=== PATIENT | male | born 1975 | race Caucasian/White ===

== ENCOUNTER → 2017-09-21 | Outpatient (CLI) | payer BC ==
[~2017-09-21] MED LIST: SERT100T5 PO
== END ==
LOC: STAR 10:27
PROVIDERS: ATTEND Orthopaedic Surgery
DX: Z02.9 Encounter for administrative examinations, unspecified (principal)

== ENCOUNTER 2017-09-27 09:22 | Day surgery (SDC) | payer BC ==
[~2017-09-27] VITALS: Ht 182.9 cm; Wt 120.7 kg
[2017-09-27] MEDS ORDERED: LACTATED RINGERS 1,000 ML IV SCH (10:15)
[2017-09-27] MEDS ORDERED: FENTANYL PF 100 MCG/2ML ONE (10:34)
[2017-09-27] MEDS ORDERED: MIDAZOLAM 1 MG/ML, 2ML ONE (10:35)
[2017-09-27] MEDS ORDERED: LIDOCAINE 1%, 50ML ONE (11:38)
[2017-09-27] MEDS ORDERED: EPINEPHRINE 1 MG/ML, 1ML ONE (11:38)
[2017-09-27] MEDS ORDERED: CLINDAMYCIN 150 MG/ML, 6ML ONE (12:15)
[2017-09-27] MEDS ORDERED: LIDOCAINE 1%-EPI 1:100K, 50ML IM ONE (12:33)
[2017-09-27] MEDS ORDERED: PROMETHAZINE 12.5 MG SUPP PR PRN (13:00)
[2017-09-27] MEDS ORDERED: MEPERIDINE/PF 25MG/0.5ML IVPush PRN (13:00)
[2017-09-27] MEDS ORDERED: hydrALAzine 20 MG/ML, 1ML IV PRN (13:00)
[2017-09-27] MEDS ORDERED: ACETAMINOPHEN 325 MG TABLET PO PRN (13:00)
[2017-09-27] MEDS ORDERED: METOPROLOL 1 MG/ML, 5ML IV PRN (13:00)
[2017-09-27] MEDS ORDERED: DIAZEPAM 5 MG/ML, 2ML IVPush PRN (13:00)
[2017-09-27] MEDS ORDERED: EPHEDRINE 50 MG/ML, 1ML IVPush PRN (13:00)
[2017-09-27] MEDS ORDERED: MIDAZOLAM 1 MG/ML, 2ML IV PRN (13:00)
[2017-09-27] MEDS ORDERED: ONDANSETRON 2MG/ML, 2ML IVPush PRN (13:00)
[2017-09-27] MEDS ORDERED: PROMETHAZINE 25 MG/ML, 1ML IV PRN (13:00)
[2017-09-27] MEDS ORDERED: OXYcodone 5 MG/5 ML ORAL.SOL UDC PO PRN (13:00)
[2017-09-27] MEDS ORDERED: HYDROcodone/APAP 7.5-325MG/15ML UDC PO PRN (13:00)
[2017-09-27] MEDS ORDERED: LABETALOL 5MG/ML, 20ML IV PRN (13:00)
[2017-09-27] MEDS ORDERED: ALBUTEROL SULFATE 2.5 MG/3 ML NPPB PRN (13:00)
[2017-09-27] MEDS ORDERED: FENTANYL PF 100 MCG/2ML IV PRN (13:00)
[2017-09-27] MEDS ORDERED: HYDROmorphone 1 MG/ML, 1ML IV PRN (13:00)
[2017-09-27] MEDS ORDERED: PROPOFOL 10 MG/ML, 20ML ONE (13:16)
[2017-09-27] MEDS ORDERED: ROCURONIUM 10 MG/ML,10ML ONE (13:16)
[2017-09-27] MEDS ORDERED: CEFAZOLIN 1,000 MG ONE ×2 (13:16)
[2017-09-27] MEDS ORDERED: DEXAMETHASONE 4 MG/ML, 1ML ONE (13:16)
[2017-09-27] MEDS ORDERED: SUCCINYLCHOLINE 20 MG/ML, 10ML ONE (13:16)
[2017-09-27] MEDS ORDERED: ONDANSETRON 2MG/ML, 2ML ONE (13:16)
[2017-09-27] MEDS ORDERED: ACETAMINOPHEN 650 MG/20.3 ML UDC ONE (13:46)
[2017-09-27] MEDS ORDERED: KETOROLAC 30 MG/1 ML ONE (13:46)
[2017-09-27] MEDS ORDERED: OXYcodone 5 MG/5 ML ORAL.SOL UDC ONE (13:47)
[2017-09-27] MEDS ORDERED: KETOROLAC 30 MG/1 ML IVPush ONE (14:00)
== END 2017-09-27 17:00 | disposition home or self-care (01) ==
LOC: OUT 09:22
PROVIDERS: ATTEND Orthopaedic Surgery
DX: M75.111 Incomplete rotator cuff tear or rupture of right shoulder, not specified as traumatic (principal); M75.41 Impingement syndrome of right shoulder; M24.111 Other articular cartilage disorders, right shoulder; M65.811 Other synovitis and tenosynovitis, right shoulder; F41.9 Anxiety disorder, unspecified
CPT/HCPCS: 29822; 29826; 29827; 29828; C1713; J0171; J0330; J0690; J1100; J1885; J2250; J2405; J2704; J3010; J3490; J7120